=== PATIENT | female | born 1945 | race Caucasian/White ===

== ENCOUNTER 2023-07-06 20:31 | Observation (INO) | payer MEDICARE ==
[~2023-07-06] VITALS: Ht 154.9 cm; Wt 55.5 kg
[~2023-07-06 20:31] MED LIST: HCTZ; LEVOTHYROXIN0.075 MG PO; PRAVACHOL10 MG PO
[2023-07-06 21:47] LABS: BASO # 0.1 K/mm3 (0.0-0.2); BASO % 0.6 % (0.0-2.0); EOS # 0.1 K/mm3 (0.0-0.7); EOS % 1.2 % (0.0-4.0); GRAN # 6.6 K/mm3 (1.4-6.5); GRAN % 70.1 % (42.2-75.2); HEMATOCRIT 43.4 % (37.0-47.0); HEMOGLOBIN 15.2 g/dl (12.5-16.0); LYMPH # 1.7 K/mm3 (1.2-3.4); LYMPH % 17.5 % (20.0-51.0); MEAN CELL VOLUME 87 fl (80.0-100.0); MEAN CORPUSCULAR HEMOGLOBIN 30 pg (27-31); MEAN CORPUSCULAR HGB CONC 35 g/dl (33.0-37.0); MEAN PLATELET VOLUME 10.2 fl (7.4-10.4); MONO # 0.9 K/mm3 (0.1-0.6); MONO % 9.8 % (1.7-9.3); PLATELET COUNT 286 K/mm3 (130-400); RED BLOOD COUNT 5.02 M/mm3 (4.10-5.30); REDCELL DISTRIBUTION WIDTH-CV 12.8 % (11.5-14.5)
[2023-07-06 22:00] LABS: URINE APPEARANCE CLEAR (CLEAR/HAZY); URINE BLOOD NEGATIVE (NEGATIVE); URINE COLOR YELLOW (YELLOW); URINE GLUCOSE NEGATIVE (NEGATIVE); URINE KETONE 1+ (NEGATIVE); URINE NITRATE NEGATIVE (NEGATIVE); URINE PROTEIN(semi-quant) TRACE (NEGATIVE)
[2023-07-06 22:16] LABS: COLLECTION METHOD CLEAN CATCH
[2023-07-06 22:26] LABS: ALBUMIN 3.6 gm/dL (3.4-4.8); BILIRUBIN,TOTAL 0.5 mg/dL (0.2-1.2); CALCIUM 9.7 mg/dL (8.4-10.2); CREATININE, serum 0.67 mg/dL (0.57-1.11); MAGNESIUM 1.9 mg/dL (1.6-2.6); PHOSPHOROUS 2.6 mg/dL (2.3-4.7); POTASSIUM 3.6 mmol/L (3.5-4.5); TOTAL PROTEIN 6.6 gm/dL (6.2-8.1)
[2023-07-06] MEDS ORDERED: Ibuprofen 400 MG TAB PO ONE (22:45)
[2023-07-06 22:46] LABS: THYROID STIMULATING HORMONE 3.653 uIU/mL (0.350-4.940); TROPONIN-I 0.013 ng/mL (0.00-0.033)
[2023-07-06] MEDS ORDERED: NS 1,000 ML IV ONE (23:00)
[2023-07-06] MEDS ORDERED: NS 1,000 ML IV SCH (23:00)
[2023-07-06] MEDS ORDERED: SYNTHROID0.075 MG/T PO (23:04)
[2023-07-06] MEDS ORDERED: HCTZ 25MG TAB25 MG PO (23:04)
[2023-07-06] MEDS ORDERED: PRAVACHOL 40MG40 MG PO (23:04)
[2023-07-06] MEDS ORDERED: MOBIC15 MG PO (23:04)
[2023-07-06] MEDS ORDERED: Ondansetron 4 MG/2 ML VIAL IV PRN (23:15)
[2023-07-06] MEDS ORDERED: Melatonin 3 MG TAB PO PRN (23:15)
[2023-07-06] MEDS ORDERED: Docusate Sodium 100 MG CAP PO PRN (23:15)
[2023-07-06] MEDS ORDERED: Acetaminophen 325 MG TAB PO PRN (23:15)
[2023-07-06] MEDS ORDERED: amLODIPine 5 MG TAB PO ONE (23:15)
[2023-07-06] MEDS ORDERED: AMOXICILLIN 50500 MG PO (23:52)
[2023-07-07] VITALS (8 sets, daily range): BP systolic 119–147; BP diastolic 63–75; PULSE 56–65; TEMP 97.7–98.3
[2023-07-07 03:50] LABS: BASO # 0.1 K/mm3 (0.0-0.2); BASO % 0.8 % (0.0-2.0); EOS # 0.2 K/mm3 (0.0-0.7); EOS % 2.7 % (0.0-4.0); GRAN # 4.7 K/mm3 (1.4-6.5); GRAN % 62.8 % (42.2-75.2); LYMPH # 1.8 K/mm3 (1.2-3.4); LYMPH % 23.7 % (20.0-51.0); MEAN CELL VOLUME 87 fl (80.0-100.0); MEAN CORPUSCULAR HEMOGLOBIN 30 pg (27-31); MEAN CORPUSCULAR HGB CONC 35 g/dl (33.0-37.0); MONO # 0.7 K/mm3 (0.1-0.6); MONO % 9.2 % (1.7-9.3); PLATELET COUNT 245 K/mm3 (130-400); RED BLOOD COUNT 4.31 M/mm3 (4.10-5.30); REDCELL DISTRIBUTION WIDTH-CV 12.8 % (11.5-14.5)
[2023-07-07 03:58] LABS: HEMATOCRIT 37.3 % (37.0-47.0)
[2023-07-07 04:46] LABS: CALCIUM 8.7 mg/dL (8.4-10.2); CREATININE, serum 0.62 mg/dL (0.57-1.11); POTASSIUM 3.6 mmol/L (3.5-4.5)
--- NOTE | 2023-07-07 05:36 | NUR ---
Patient arrived to the floor at 0440 from ED, A/Ox4, admission assessment and intake done, medrec reviewed, hospital policies orientated, on tele and room air, denies further needs, call light and personal items within reach, will continue to monitor.
--- NOTE | 2023-07-07 08:52 | NUR ---
Pt doing okay this morning, she reports feeling better than yesterday. Pt reports being sick mid Feb and has not recovered from this. Pt reports that she has a poor appetite and overall weakness as a result. Pt does appear to be without energy. Discussed her ordering some breakfast. Pt reports no nausea, food just does not sound good. Encouraged her to eat frequent small meals to build up strength. Discussed that she has not had BM in a week. Will discuss with Dr for ordering laxative/stool softners. Pt looking at menu at this time, no other needs
[2023-07-07] MEDS ORDERED: amLODIPine 5 MG TAB PO SCH (09:00)
--- NOTE | 2023-07-07 10:00 | NUR ---
Pt did not end up ordering any breakfast, she reports she just is not hungry. Cardiology did call and asked to keep her NPO for possible stress test. Updated pt on this
--- NOTE | 2023-07-07 10:31 | NUR ---
Initial visit; Patient thanked Bowl Attendant for looking in on her and offering Spiritual Care. Patient thanked Bowl Attendant for introducing herself though declined a visit.
--- NOTE | 2023-07-07 12:15 | NUR ---
Cardiology oked pt to eat, reported stress test for tomorrow. Updated pt on this. Pts daughter and spouse in room at this time, all questions answered. No other needs, will continue to monitor
[2023-07-07] MEDS ORDERED: Polyethylene Glycol 3350 17 GM PDS PO PRN (12:45)
--- NOTE | 2023-07-07 13:39 | NUR ---
Socail Worker met with patient to discuss discharge planning. Patient lives in [place] with her Ruslan ([phone]) and daughter/DPOA Vanessa ([phone]). Patient is independent with all activities. She uses no DME and sees Dr. White as her PCP and uses [facility] or [facility]. Patient provided copies of her DPOA and advanced directives to be added to chart. No dc needs identified at this time. Discharge Plan: Home
[2023-07-07] MEDS ORDERED: Amoxicillin 500 MG CAP PO SCH (14:00)
[2023-07-07] MEDS ORDERED: [UNRECOGNIZED DRUG - OTHER] PO SCH (14:00)
--- NOTE | 2023-07-07 15:00 | NUR ---
Pt has had several people in and out of her room. Pts daughter is still here, but pt hoping to get a nap. Informed her that I had no medications for her and that we would hold nursing cares this afternoon. Informed her and her daughter that I would peek in, but would not wake her. Informed them to notify nursing if they needed anything
--- NOTE | 2023-07-07 20:49 | NUR ---
PT IN BED, INT TO LFA FLUSHES WELL. REPORTS CHEST TIGHTNESS CONTINUES, NOT NEW FOR PT. MEDICATED WITH HS MEDS INCLUDING TYLENOL 650MG PO FOR DISCOMFORT. PT AWARE OF NPO STATUS AFTER MIDNIGHT. DISCUSSED LEXISCAN WITH PT.
[2023-07-07] MEDS ORDERED: Pravastatin 20 MG TAB PO SCH (21:00)
[2023-07-07] MEDS ORDERED: Patient's Own Medication Item PO SCH (21:00)
[2023-07-08] VITALS (14 sets, daily range): BP systolic 123–155; BP diastolic 59–84; PULSE 60–115; TEMP 97.8–98
--- NOTE | 2023-07-08 | NUR ---
NPO FOR LEXISCAN IN AM.
--- NOTE | 2023-07-08 07:02 | NUR ---
Pt doing okay this morning, reports that she continues to feel better and that she was able to get some sleep last night. Staff in room to discuss ankur scan later this morning
--- NOTE | 2023-07-08 08:32 | NUR ---
Pt off the floor for ankur scan
[2023-07-08] MEDS ORDERED: Regadenoson 0.08 MG/ML 5 ML SYRINGE IV SCH (09:07)
--- NOTE | 2023-07-08 09:45 | NUR ---
Pt back recently from having rhoda scan. Pt having complaints of a headache. Spouse is at bedside at this time. Discussed with hospitalist regarding diet. Awaiting to hear results of Rhoda. Pt and spouse updated on this
[2023-07-08 10:25] LABS: BASO # 0.1 K/mm3 (0.0-0.2); BASO % 1.3 % (0.0-2.0); EOS # 0.1 K/mm3 (0.0-0.7); EOS % 2.4 % (0.0-4.0); GRAN # 3.6 K/mm3 (1.4-6.5); GRAN % 66.5 % (42.2-75.2); HEMATOCRIT 43.6 % (37.0-47.0); HEMOGLOBIN 14.4 g/dl (12.5-16.0); LYMPH % 19.4 % (20.0-51.0); MEAN CELL VOLUME 90 fl (80.0-100.0); MEAN CORPUSCULAR HEMOGLOBIN 30 pg (27-31); MEAN CORPUSCULAR HGB CONC 33 g/dl (33.0-37.0); MEAN PLATELET VOLUME 10.2 fl (7.4-10.4); MONO # 0.5 K/mm3 (0.1-0.6); MONO % 9.7 % (1.7-9.3); PLATELET COUNT 255 K/mm3 (130-400); RED BLOOD COUNT 4.87 M/mm3 (4.10-5.30); REDCELL DISTRIBUTION WIDTH-CV 13.3 % (11.5-14.5)
[2023-07-08 10:44] LABS: CALCIUM 8.7 mg/dL (8.4-10.2); CREATININE, serum 0.61 mg/dL (0.57-1.11); POTASSIUM 3.7 mEq/L (3.5-4.5)
--- NOTE | 2023-07-08 15:27 | NUR ---
Report given to Mark RODRIGUEZ. PT doing well, no issues or complaints at this time. Daughter present in the room. Pt did order and ate 100% of her meal. Encourage her to continue to eat frequently and drink fluids. Call light within reach
[2023-07-08] MEDS ORDERED: NORVASC 5MG5 MG/TAB PO (16:38)
[2023-07-08] MEDS ORDERED: TYLENOL 325MG325 MG PO (16:39)
== END 2023-07-08 18:08 | disposition home or self-care (01) ==
LOC: COL.ER 20:31 → SURG 07-07 03:51
PROVIDERS: Emergency Medicine; Physician Assistant; ADMIT Internal Medicine
DX: R07.9 Chest pain, unspecified (principal); R00.2 Palpitations; E87.1 Hypo-osmolality and hyponatremia; E03.9 Hypothyroidism, unspecified; I10 Essential (primary) hypertension; Z79.890 Hormone replacement therapy; Z79.899 Other long term (current) drug therapy; Z87.891 Personal history of nicotine dependence
CPT/HCPCS: A9500-JZ; G0378; J1650; J2785; J7030

== ENCOUNTER 2023-11-11 02:27 | Emergency (ER) | payer MEDICARE ==
[~2023-11-11] VITALS: Ht 154.9 cm; Wt 47.3 kg
[~2023-11-11 02:27] MED LIST changes: +AMOXICILLIN 50500 MG PO; +HCTZ 25MG TAB25 MG PO; +MOBIC15 MG PO; +NORVASC 5MG5 MG/TAB PO; +NORVASC2.5 MG PO; +PRAVACHOL 40MG40 MG PO; +PROTONIX 40MG T40 MG PO; +SYNTHROID0.075 MG/T PO; +TYLENOL 325MG325 MG PO; +TYLENOL 500MG500 MG PO
[2023-11-11 02:34] VITALS: BP 153/78; TEMP 97.8
[2023-11-11] MEDS ORDERED: Acetaminophen 500 MG TAB PO ONE (03:00)
[2023-11-11 03:10] VITALS: PULSE 77
== END 2023-11-11 03:10 | disposition home or self-care (01) ==
LOC: COL.ER 02:27
DX: M19.09 Primary osteoarthritis, other specified site (principal)